=== PATIENT | female | born 1950 | race African-American/Black ===

== ENCOUNTER 2016-12-15 10:13 | Emergency (ER) | payer MEDICARE, OTHER ==
[~2016-12-15] VITALS: Ht 170.2 cm; Wt 126.0 kg
[~2016-12-15 10:13] MED LIST: AMLO2.5T45 PO; ASPI-1079 PO; ASPI-1158; CARV12.545 PO; CARV6.2548 PO; CHOL20006 PO; GABA-531 PO; GABA300S PO; INSLIS SUBCUT; INSU100C11 SQ; INSU100C3 SQ; METF500T4 PO; METH500T PO; OXYC-23 PO; VALS1TAB80 PO; ZOLP10TA6 PO
[2016-12-15 11:09] LABS: BG BASE EXCESS -3.2 mmol/L (-2.0-2.0); BG CARBOXYHEMOGLOBIN 0.5 % (0.5-1.5); BG DEOXYHEMOGLOBIN 8.1 % (0.0-5.0); BG FRACTION INSPIRED OXYGEN 21; BG HCO3 ACT 20.4 mmol/L (22.0-26.0); BG OXYGEN SATURATION 91.9 % (92.0-98.5); BG OXYHEMOGLOBIN 91.4 % (94.0-97.0); BG PCO2 32.1 mmHg (35.0-45.0); BG PH 7.421 (7.350-7.450); BG PO2 66.1 mmHg (75.0-100.0); BG SAMPLE SITE RIGHT BRACHIAL; BG TOTAL HEMOGLOBIN 11.8 g/dL (12.0-18.0); BG VENT MODE ROOM AIR
[2016-12-15] MEDS ORDERED: MORPHINE SULFATE 4 MG/ML CPJ (NOT FOR IM USE) IV ONE (11:15)
[2016-12-15] MEDS ORDERED: TETANUS, DIPHTHERIA, PERTUSSIS VAC/PF 0.5ML (>7YR OLD) IM ONE (11:15)
[2016-12-15] MEDS ORDERED: ONDANSETRON HCL 4MG/2ML VIAL IV ONE (11:15)
[2016-12-15] MEDS ORDERED: BACITRACIN ZINC OINT UDPKT TOP ONE (11:15)
[2016-12-15 11:38] LABS: BASOPHILS % 1.1 % (0.0-2.0); EOSINOPHILS % 2.6 % (0.0-5.0); HEMATOCRIT. 33.2 % (36.0-48.0); HEMOGLOBIN. 11.3 g/dL (12.0-16.0); LYMPHOCYTES % 18.6 % (20.0-50.0); MEAN CORPUSCULAR HEMOGLOBIN 29.9 pg (28.0-32.0); MONOCYTES % 7.4 % (2.0-8.0); NEUTROPHILS % 70.3 % (40.0-76.0); PLATELET 214 x1000/uL (130-400); RED BLOOD CELL COUNT 3.77 mill/uL (4.2-5.4); RED CELL DISTRIBUTION WIDTH 14.9 % (11.6-14.6)
[2016-12-15 11:46] LABS: PROTHROMBIN TIME 10.5 sec
[2016-12-15 11:48] LABS: CARBON DIOXIDE 22 mEq/L (21-32); CHLORIDE 112 mEq/L (98-107)
[2016-12-15 11:52] LABS: CREATINE KINASE 274 IU/L (26-192); ETHANOL BLOOD < 10 mg/dL; PHENYTOIN 0.6 ug/mL (10-20); TROPONIN I < 0.02 ng/mL (0.00-0.04)
[2016-12-15 11:57] LABS: CARBAMAZEPINE < 0.5 ug/mL (4-12); PHENOBARBITAL < 2.1 ug/mL (15.0-40.0); VALPROIC ACID < 3.0 ug/mL (50-100)
[2016-12-15 12:10] LABS: CLARITY URINE CLEAR (CLEAR); COLOR URINE YELLOW (YELLOW); GLUCOSE URINE 1+ (NEGATIVE); KETONES URINE NEGATIVE (NEGATIVE); LEUKOCYTE ESTERASE URINE 1+ (NEGATIVE); NITRITE URINE NEGATIVE (NEGATIVE); OCCULT BLOOD URINE TRACE (NEGATIVE); PH URINE 5.5 (4.5-8.0); PROTEIN URINE 2+ (NEGATIVE); SPECIFIC GRAVITY URINE 1.012 (1.005-1.030); UROBILINOGEN URINE 0.2 E.U./dL (0.2-1.0)
[2016-12-15 12:22] LABS: *AMPHETAMINES SCREEN URINE NEGATIVE (NEGATIVE); *BARBITURATES SCREEN URINE NEGATIVE (NEGATIVE); *BENZODIAZEPINES SCREEN URINE NEGATIVE (NEGATIVE); *COCAINE SCREEN URINE NEGATIVE (NEGATIVE); CANNABINOID URINE SCREEN NEGATIVE (NEGATIVE); METHADONE URINE SCREEN NEGATIVE (NEGATIVE); OPIATES URINE SCREEN NEGATIVE (NEGATIVE); PHENCYCLIDINE URINE SCREEN NEGATIVE (NEGATIVE)
[2016-12-15 16:27] VITALS: BP 142/66
== END 2016-12-15 16:28 | disposition home or self-care (01) ==
LOC: ER 10:21 → CANBEDREQ 23:06
DX: S00.10XA Contusion of unspecified eyelid and periocular area, initial encounter (principal); S00.03XA Contusion of scalp, initial encounter; S05.11XA Contusion of eyeball and orbital tissues, right eye, initial encounter; R41.82 Altered mental status, unspecified; E11.9 Type 2 diabetes mellitus without complications; I25.10 Atherosclerotic heart disease of native coronary artery without angina pectoris; I11.0 Hypertensive heart disease with heart failure; I50.9 Heart failure, unspecified; Z79.4 Long term (current) use of insulin; Z91.013 Allergy to seafood; Z88.2 Allergy status to sulfonamides; W05.0XXA Fall from non-moving wheelchair, initial encounter; Y93.89 Activity, other specified; Y99.8 Other external cause status; Y92.89 Other specified places as the place of occurrence of the external cause
CPT/HCPCS: 36415; 36600; 70450; 71010; 80053; 80156; 80165; 80184; 80185; 80305; 81001; 82375; 82550; 82805; 83605; 83880; 84443; 84484; 85025; 85610; 90471; 90715; 93005; 93970; 96374; 96375; 99285; G0482; J2270; J2405